=== PATIENT | male | born 1970 | race Asian ===

== ENCOUNTER 2018-12-08 05:10 | Day surgery (SDC) | payer OTHER ==
[~2018-12-08] VITALS: Ht 177.8 cm; Wt 88.1 kg
[2018-12-08 07:44] VITALS: Ht 177.8 cm; Wt 88.1 kg
== END 2018-12-08 05:11 | disposition left against medical advice (07) ==
LOC: UNDODISIN 05:10 → SUR 05:10 → PP2 05:10 → UNDOADMIN 05:10 → 2NE 05:10 → SUR 05:11 → EDSTATUS 08:17
PROVIDERS: ATTEND Family Medicine
DX: K37 Unspecified appendicitis (principal); Z53.8 Procedure and treatment not carried out for other reasons

== ENCOUNTER 2018-12-08 05:35 | Inpatient (IN) | payer OTHER ==
[2018-12-08] VITALS (18 sets, daily range): BP systolic 118–176; BP diastolic 81–113; PULSE 86–113; RESP 16–21; Ht 177.8 cm; Wt 89.6 kg
[~2018-12-08] VITALS: Ht 177.8 cm; Wt 89.6 kg
--- NOTE | 2018-12-08 06:08 | ERD ---
ER Documentation Chief Complaint Chief Complaint CAME FROM [facility]; STATES DX OF APPENDICITIS HPI 48-year-old male history of hypertension presents to the ED complaining of 1 day history of worsening, abdominal pain which localized to the right lower quadrant with nausea and vomiting but no diarrhea. Patient was seen yesterday in the ED at [facility], diagnosed with appendicitis and was pending transfer but signed out AGAINST MEDICAL ADVICE and came on his own. WBC count was 18.[address] of the abdomen and pelvis with intravenous contrast revealed a dilated appendix measuring 14 mm with surrounding edema and fat stranding but no drainable fluid collection. Rocephin and Flagyl were given. ROS All systems reviewed and are negative except as per history of present illness. Allergies Allergies: Coded Allergies: No Known Allergy (Unverified , 12/08/18) PMhx/Soc No medication allergies. Medical and Surgical Hx: pt denies Surgical Hx History of Surgery: No Anesthesia Reaction: No Hx Neurological Disorder: No Hx Respiratory Disorders: No Hx Cardiac Disorders: Yes (HTN) Hx Psychiatric Problems: No Hx Miscellaneous Medical Probl: No Hx Alcohol Use: No Hx Substance Use: No Hx Tobacco Use: No Smoking Status: Never smoker FmHx No family history relevant to presenting complaint Physical Exam Vitals Vital Signs Date Temp Pulse Resp B/P (MAP) Pulse Ox O2 O2 Flow FiO2 Time Delivery Rate 12/08/18 108 22 135/86 99 Room Air 06:30 (102) 12/08/18 99.5 115 14 131/100 96 Room Air 06:05 (110) 12/08/18 100.8 124 18 151/102 94 05:39 (118) Physical Exam Const: Alert, moderate distress. Head: Atraumatic Eyes: Normal Conjunctiva. Anicteric ENT: Normal External Ears, Nose and Mouth. Neck: Full range of motion. No meningismus. No lymphadenopathy or masses. Resp: Breath sounds are equal and clear to auscultation bilaterally Cardio: Tachycardic. Regular rate and rhythm, no murmurs Abd: Soft, moderate, right lower quadrant tenderness but no rebound or guarding. Skin: No petechiae or rashes Back: No midline or flank tenderness Ext: No cyanosis, or edema Neur: Awake and alert. No focal deficit Psych: Cooperative. Anxious but not depressed. Result Diagram: 12/08/1862912/08/18629 Results 24 hrs Laboratory Tests Test 12/08/18 06:30 White Blood Count 15.8 10^3/ul Red Blood Count 5.31 10^6/ul Hemoglobin 16.1 g/dl Hematocrit 48.5 % Mean Corpuscular Volume 91.3 fl Mean Corpuscular Hemoglobin 30.3 pg Mean Corpuscular Hemoglobin Concent 33.2 g/dl Red Cell Distribution Width 12.2 % Platelet Count 257 10^3/UL Mean Platelet Volume 10.2 fl Immature Granulocytes % 0.300 % Neutrophils % 89.4 % Segmented Neutrophils % (Manual) 87 % Band Neutrophils % (Manual) 1 % Lymphocytes % 6.8 % Lymphocytes % (Manual) 4 % Reactive Lymphocytes % (Manual) 1 % Monocytes % 3.4 % Monocytes % (Manual) 4 % Eosinophils % 0.0 % Basophils % 0.1 % Metamyelocytes % (manual) 1 % Myelocytes % (Manual) 2 % Nucleated Red Blood Cells % 0.0 /100WBC Immature Granulocytes # 0.050 10^3/ul Neutrophils # 14.1 10^3/ul Neutrophils # (Manual) 13.8 10^3/ul Band Neutrophils # 0.1 10^3/ul Lymphocytes (Manual) 0.6 10^3/ul Lymphocytes # 1.1 10^3/ul Reactive Lymphocytes # 0.1 10^3/ul Monocytes # 0.5 10^3/ul Monocytes # (Manual) 0.6 10^3/ul Eosinophils # 0.0 10^3/ul Basophils # 0.0 10^3/ul Metamyelocytes # 0.1 10^3/ul Myelocytes # 0.3 10^3/ul Nucleated Red Blood Cells # 0.0 10^3/ul Platelet Estimate NORMAL Anisocytosis 1+ Sodium Level 140 mmol/L Potassium Level 3.8 mmol/L Chloride Level 105 mmol/L Carbon Dioxide Level 25 mmol/L Anion Gap 10 Blood Urea Nitrogen 18 mg/dl Creatinine 0.98 mg/dl Est Glomerular Filtrat Rate mL/min > 60 mL/min Glucose Level 117 mg/dl Calcium Level 9.4 mg/dl Total Bilirubin 1.6 mg/dl Direct Bilirubin 0.00 mg/dl Indirect Bilirubin 1.6 mg/dl Aspartate Amino Transf (AST/SGOT) 21 IU/L Alanine Aminotransferase (ALT/SGPT) 30 IU/L Alkaline Phosphatase 66 IU/L Total Protein 7.5 g/dl Albumin 4.5 g/dl Globulin 3.00 g/dl Albumin/Globulin Ratio 1.50 Lipase 54 U/L Current Medications Medications Dose Sig/Sergio Start Time Status Last (Trade) Ordered Route PRN Stop Time Admin Dose Reason Admin Potassium 1,000 ml @ Q8H STAT 12/08/18 DC 12/08/18 Chloride/Dext 125 mls/hr IV 06:16 12/08/18 06:53 jann/ Sod Cl 14:15 Morphine 4 mg ONCE STAT 12/08/18 DC 12/08/18 Sulfate IV 06:16 12/08/18 06:43 (morphine) 06:21 Ondansetron 4 mg ONCE STAT 12/08/18 DC 12/08/18 HCl (Zofran IV 06:16 12/08/18 06:43 Inj) 06:21 Sodium 1,000 ml @ [id number] IV 12/08/18 Chloride 80 mls/hr 06:31 Procedures/MDM DOCUMENTS REVIEWED: ED nurse, [facility] ED EKG: Time: 06:31. Sinus tachycardia. Ventricular rate 108. Normal ND and QRS intervals. No acute ST segment elevation or depression. No axis deviation or ectopy. My Interpretation: Normal EKG IMAGING: CT scan of the abdomen and pelvis with intravenous contrast performed at [facility] revealed a dilated appendix measuring 14 mm with surrounding edema and fat stranding but no drainable fluid collection consistent with acute uncomplicated appendicitis. There is also hypodensity in the left lobe of the liver measuring 1.3 cm likely an hepatic cyst. MEDICAL DECISION MAKIN-year-old male history of hypertension presents to the ED complaining of 1 day history of worsening, abdominal pain which localized to the right lower quadrant with nausea and vomiting but no diarrhea. Medical records from [facility] were obtained and reviewed. CT scan revealed acute appendicitis without perforation. Patient was diagnosed with acute appendicitis, IV antibiotics: Rocephin/Flagyl given and was pending transfer but apparently signed out AGAINST MEDICAL ADVICE and came to [facility] on his own. Last p.o. intake was at approximately 01:00. Multiple criteria for systemic inflammatory response syndrome including fever, tachycardia and leukocytosis. Sepsis due to acute appendicitis. Time of recognition/triage time 05:39. Lactate is 1.4 mmol/L. No elevated lactate, end organ dysfunction, hypotension or criteria for severe sepsis or septic shock; hence "bundle therapy" is not indicated. Surgery consulted. Admit to [facility] for urgent surgical intervention, further evaluation and management. CALLS/CONSULTS: Time: 06:24, Dr. Zhou. Will consult PATIENT CARE TRANSITIONED: Time: 06:27, Dr. King. Counseled patient regarding diagnosis, diagnostic results and plan for admission. Departure Diagnosis: Primary Impression: Acute abdominal pain in right lower quadrant Additional Impressions: Acute appendicitis Acute appendicitis type: unspecified acute appendicitis type Qualified Codes: K35.80 - Unspecified acute appendicitis SIRS (systemic inflammatory response syndrome) Sepsis Sepsis type: sepsis due to unspecified organism Qualified Codes: A41.9 - Sepsis, unspecified organism Condition: Serious PARAMJIT MCCORMACK MD December 08, 2018 06:08
[2018-12-08] MEDS ORDERED: ONDANSETRON 4 MG INJ IV STA (06:16)
[2018-12-08] MEDS ORDERED: morphine 4 MG/ML VIAL IV STA (06:16)
[2018-12-08] MEDS ORDERED: D5W-0.45 NACL + KCL 20 MEQ 1,000 ML IV STA (06:16)
[2018-12-08] MEDS ORDERED: BISACODYL (EC) 5 MG TAB PO PRN (07:00)
[2018-12-08] MEDS ORDERED: DOCUSATE SODIUM 100 MG CAP PO PRN (07:00)
[2018-12-08] MEDS ORDERED: NACL 0.9% 3 ML SYG IV SCH (07:00)
[2018-12-08] MEDS: morphine 2 MG INJ IV PRN ×3 (08:51→23:19)
[2018-12-08] MEDS: PIPER-TAZO 3.375 GM IV (PMX) 100 ML IVPB SCH ×4 (09:14→21:19)
--- NOTE | 2018-12-08 14:38 | HP ---
Date/Time of Note Date/Time of Note DATE: 12/08/18 TIME: 14:31 Assessment/Plan VTE Prophylaxis Pharmacological prophylaxis: NA/contraindicated Pharm contraindication: low risk/ambulating Lines/Catheters IV [facility] Saline Lock Urinary Cath still in place: No Assessment/Plan Hospital Course SUBJECTIVE: OBJECTIVE: Vital signs-see below PHYSICAL EXAM: Constitutional: Adequately built,not in acute distress. HEENT: Head atraumatic and normocephalic. Eyes: Extraocular muscles intact. Ani cteric sclerae. Pupils equal bilaterally, reactive to light. NECK: Supple without lymph node. CHEST: Clear and good breath sounds equally. No wheezing. No rhonchi. HEART: S1, S2. Regular rate and rhythm. ABDOMEN: +RUQ tenderness. no rebound tenderness. Bowel sounds were present. EXTREMITIES: No cyanosis, clubbing or edema. NEUROLOGIC: Alert and oriented x3. No focal deficit. No sensory deficit. PSYCHOSOCIAL: No signs of depression. INTEGUMENTARY: No open wounds. ASSESSMENT AND PLAN: 48-year-old homeless male with no significant past medical history, admitted with acute appendicitis diagnosed from outside hospital. X 1. Acute appendicitis. -Surgical consult, likely requiring appendectomy. -IV Zosyn, n.p.o., IV fluids, PRN pain control. 2. Sepsis with acute appendicitis. -Continue appropriate antimicrobials with good anaerobic coverage. Follow-up postoperative findings. 3. Homelessness -new car make ready worker consult -Recommend getting urine drug toxicology as well. DVT prophylaxis: SCDs PUD prophylaxis: Not indicated Rest of the management depend on hospital course. Approximately 60 m spent on this history and physical. Patient was seen in collaboration with Dr. Resendiz. Result Diagram: 12/08/18 0630 12/08/18 0630 Results 24hrs Laboratory Tests Test 12/08/18 06:30 12/08/18 07:06 White Blood Count 15.8 H Red Blood Count 5.31 Hemoglobin 16.1 Hematocrit 48.5 Mean Corpuscular Volume 91.3 Mean Corpuscular Hemoglobin 30.3 Mean Corpuscular Hemoglobin Concent 33.2 Red Cell Distribution Width 12.2 Platelet Count 257 Mean Platelet Volume 10.2 Immature Granulocytes % 0.300 Neutrophils % 89.4 H Segmented Neutrophils % (Manual) 87 H Band Neutrophils % (Manual) 1 Lymphocytes % 6.8 L Lymphocytes % (Manual) 4 L Reactive Lymphocytes % (Manual) 1 H Monocytes % 3.4 Monocytes % (Manual) 4 Eosinophils % 0.0 Basophils % 0.1 Metamyelocytes % (manual) 1 H Myelocytes % (Manual) 2 H Nucleated Red Blood Cells % 0.0 Immature Granulocytes # 0.050 H Neutrophils # 14.1 H Neutrophils # (Manual) 13.8 H Band Neutrophils # 0.1 Lymphocytes (Manual) 0.6 L Lymphocytes # 1.1 Reactive Lymphocytes # 0.1 H Monocytes # 0.5 Monocytes # (Manual) 0.6 Eosinophils # 0.0 Basophils # 0.0 Metamyelocytes # 0.1 H Myelocytes # 0.3 H Nucleated Red Blood Cells # 0.0 Platelet Estimate NORMAL Anisocytosis 1+ Sodium Level 140 Potassium Level 3.8 Chloride Level 105 Carbon Dioxide Level 25 Anion Gap 10 Blood Urea Nitrogen 18 Creatinine 0.98 Est Glomerular Filtrat Rate mL/min > 60 Glucose Level 117 Calcium Level 9.4 Total Bilirubin 1.6 H Direct Bilirubin 0.00 Indirect Bilirubin 1.6 H Aspartate Amino Transf (AST/SGOT) 21 Alanine Aminotransferase (ALT/SGPT) 30 Alkaline Phosphatase 66 Total Protein 7.5 Albumin 4.5 Globulin 3.00 Albumin/Globulin Ratio 1.50 Lipase 54 POC Venous Lactate 1.4 HPI/ROS Admit Date/Time Admit Date/Time December 08, 2018 at 06:32 Hx of Present Illness This is a 48-year-old male who is also homeless, admitted at [facility] with acute appendicitis and was waiting for transfer to [facility] due to insurance capitation, patient left AGAINST MEDICAL ADVICE from there and came straight to [facility] emergency room. Patient has been having right-sided abdominal pain associated with fevers and mild nausea for 1 day duration. He denied diarrhea, vomiting, loss of appetite, upper or lower GI bleeds. Patient also denies chest pain, palpitation, dizziness, loss of consciousness, headache or other constitutional symptoms. On arrival to [facility] ER, patient had a temperature 100.8, heart rate 124 and blood pressure 151/102. Patient was given antimicrobials and a surgery consultation was called from the emergency room. ROS A 12 point review of system was assessed and is negative other than what is mentioned in the HPI. PMH/Family/Social Past Medical History See HPI Medications Current Medications Sodium Chloride 1,000 ml @ 80 mls/hr [id number] IV ; Start 12/08/18 at 06:31 IV Flush (NS 3 ml) 3 ml PER PROTOCOL IV ; Start 12/08/18 at 07:00 Ondansetron HCl (Zofran Inj) 4 mg Q6H PRN IV NAUSEA/VOMITING; Start 12/08/18 at 07:00 Acetaminophen (Tylenol Tab) 650 mg Q6H PRN PO .PAIN 1-3 OR TEMP; Start 12/08/18 at 07:00 Morphine Sulfate (morphine) 2 mg Q4H PRN IV .SEVERE PAIN 7-10 Last administered on 12/08/18at 08:51; Admin Dose 2 MG; Start 12/08/18 at 07:00 Docusate Sodium (Colace) 100 mg Q12H PRN PO .CONSTIPATION; Start 12/08/18 at 07:00 Bisacodyl (Dulcolax) 5 mg DAILY PRN PO .CONSTIPATION; Start 12/08/18 at 07:00 Piperacillin Sod/ Tazobactam Sod 100 ml @ 200 mls/hr Q6 IVPB Last administered on 12/08/18at 12:48; Admin Dose 200 MLS/HR; Start 12/08/18 at 07:30 Coded Allergies: No Known Allergy (Unverified , 12/08/18) Past Surgical History None Social History Denied alcohol, smoking or drug abuse history. Please note that patient is also homeless. Smoking Status: Never smoker Exam/Review of Systems Vital Signs Vitals Vital Signs Date Temp Pulse Resp B/P (MAP) Pulse Ox O2 O2 Flow FiO2 Time Delivery Rate 12/08/18 99.3 108 18 138/91 96 Room Air 08:00 (107) IRLANDA GUSTAFSON NP December 08, 2018 14:38
--- NOTE | 2018-12-08 15:10 | PREAC ---
Date/Time of Note Date/Time of Note DATE: 12/08/18 TIME: 15:08 Anesthesia Eval and Record Evaluation Time Pre-Procedure Interview DATE: 12/08/18 TIME: 15:08 Age 48 Sex male NPO: 8 hrs Preoperative diagnosis acute appendicitis Planned procedure Laparoscopic appendectomy Past Medical History Past Medical History: Includes Cardio: HTN (has not taken meds in a few days per pt) Surgery & Anesthesia Issues No known issue Meds Anticoagulation: No Beta Ernesto within 24 hr: No Reason Beta Ernesto not given: Pt. not on B-Ernesto Current Medications Sodium Chloride 1,000 ml @ 80 mls/hr [id number] IV ; Start 12/08/18 at 06:31 IV Flush (NS 3 ml) 3 ml PER PROTOCOL IV ; Start 12/08/18 at 07:00 Ondansetron HCl (Zofran Inj) 4 mg Q6H PRN IV NAUSEA/VOMITING; Start 12/08/18 at 07:00 Acetaminophen (Tylenol Tab) 650 mg Q6H PRN PO .PAIN 1-3 OR TEMP; Start 12/08/18 at 07:00 Morphine Sulfate (morphine) 2 mg Q4H PRN IV .SEVERE PAIN 7-10 Last administered on 12/08/18at 14:58; Admin Dose 2 MG; Start 12/08/18 at 07:00 Docusate Sodium (Colace) 100 mg Q12H PRN PO .CONSTIPATION; Start 12/08/18 at 07:00 Bisacodyl (Dulcolax) 5 mg DAILY PRN PO .CONSTIPATION; Start 12/08/18 at 07:00 Piperacillin Sod/ Tazobactam Sod 100 ml @ 200 mls/hr Q6 IVPB Last administered on 12/08/18at 12:48; Admin Dose 200 MLS/HR; Start 12/08/18 at 07:30 Meds reviewed: Yes Allergies Coded Allergies: No Known Allergy (Unverified , 12/08/18) Allergies Reviewed: Yes Labs/Studies Labs Reviewed: Reviewed by anesthesiologist Result Diagram: 12/08/18 0630 12/08/18 0630 Laboratory Tests 12/08/18 06:30 test: N/A Studies: ECG (st otherwise nml ) Pre-procedure Exam Last vitals Vital Signs Date Temp Pulse Resp B/P (MAP) Pulse Ox O2 O2 Flow FiO2 Time Delivery Rate 12/08/18 99.3 108 18 138/91 96 Room Air 08:00 (107) Airway: Adequate mouth opening, Adequate thyromental dist Mallampati: Mallampati II Teeth: Normal Lung: Normal Heart: Normal ASA Physical Status ASA physical status: 2 Emergency: E Planned Anesthetic General/MAC: ETT Nerve block: TAP (bilateral) Pre-operative Attestations Prior to commencing anesthesia and surgery, the patient was re-evaluated, there was verification of: *The patient's identity *The results of appropriate recent lab work and preoperative vital signs *The above evaluation not changing prior to induction *Anesthetic plan, risk benefits, alternative and complications discussed with patient/family; questions answered; patient/family understands, accepts and wishes to proceed. LINDSEY GLOVER December 08, 2018 15:10
[2018-12-08] MEDS ORDERED: BUPIVACAINE 0.5%/EPI (SDV) 30 ML INJ ONE (15:59)
[2018-12-08] MEDS ORDERED: ONDANSETRON 4 MG INJ IV PRN ×2 (16:30→20:00)
[2018-12-08] MEDS ORDERED: DIPHENHYDRAMINE 50 MG INJ IV PRN ×2 (16:30→20:00)
[2018-12-08] MEDS ORDERED: OXYCODONE/ACETAMINOPHEN (5/325) TAB PO PRN (16:30)
[2018-12-08] MEDS ORDERED: HYDROmorphONE 1 MG/5 ML IV SYRINGE IV PRN ×3 (16:30)
[2018-12-08] MEDS ORDERED: MEPERIDINE 25 MG INJ IV PRN (16:30)
[2018-12-08] MEDS ORDERED: LABETALOL HCL 20MG INJ IV PRN (16:30)
[2018-12-08] MEDS ORDERED: FENTAnyl 50 MCG/ML VIAL IV PRN (16:30)
[2018-12-08] MEDS ORDERED: PROCHLORPERAZINE 10 MG INJ IV PRN (16:30)
[2018-12-08] MEDS ORDERED: MIDAZOLAM 1 MG/ML 2 ML INJ ONE (16:50)
[2018-12-08] MEDS ORDERED: FENTAnyl 50 MCG/ML VIAL ONE ×2 (16:50→18:31)
[2018-12-08] MEDS ORDERED: ROPIVACAINE 0.5 % 30 ML VIAL ONE (16:51)
--- NOTE | 2018-12-08 17:05 | CONS ---
Assessment/Plan Assessment/Plan Assessment/Plan (Daily) Acute appendicitis for laparoscopic appendectomy. We discussed risks and benefits we discussed possible complications. We discussed possibility of open surgery as well. Patient understood and wishes to proceed. Consultation Date/Type/Reason Admit Date/Time December 08, 2018 at 06:32 Date of Consultation: December 08, 2018 Reason for Consultation Surgical Date/Time of Note DATE: 12/08/18 TIME: 17:01 Hx of Present Illness Diffuse abdominal pain started 2 days ago associated with nausea and vomiting. Patient went to the [facility] was diagnosed with appendicitis according to physical exam and CT scan. Because of the insurance requirement the patient was transferred to our hospital. Patient was admitted and started on antibiotics. Patient mentioned that pain is mostly right lower quadrant now. It is not getting better. Constitutional: no complaints, improved Eyes: no complaints ENT: no complaints Respiratory: no complaints Cardiovascular: other (Hypertension) Gastrointestinal: pain, nausea Genitourinary: no complaints Musculoskeletal: no complaints Skin: no complaints Neurologic: no complaints Endocrine: no complaints Lymphatic: no complaints Psychological: no complaints, nl mood/affect Immunologic: no complaints Past Medical History Medical History: no pertinent history Medications Current Medications Sodium Chloride 1,000 ml @ 80 mls/hr [id number] IV ; Start 12/08/18 at 06:31 IV Flush (NS 3 ml) 3 ml PER PROTOCOL IV ; Start 12/08/18 at 07:00 Ondansetron HCl (Zofran Inj) 4 mg Q6H PRN IV NAUSEA/VOMITING; Start 12/08/18 at 07:00 Acetaminophen (Tylenol Tab) 650 mg Q6H PRN PO .PAIN 1-3 OR TEMP; Start 12/08/18 at 07:00 Morphine Sulfate (morphine) 2 mg Q4H PRN IV .SEVERE PAIN 7-10 Last administered on 12/08/18at 14:58; Admin Dose 2 MG; Start 12/08/18 at 07:00 Docusate Sodium (Colace) 100 mg Q12H PRN PO .CONSTIPATION; Start 12/08/18 at 07:00 Bisacodyl (Dulcolax) 5 mg DAILY PRN PO .CONSTIPATION; Start 12/08/18 at 07:00 Piperacillin Sod/ Tazobactam Sod 100 ml @ 200 mls/hr Q6 IVPB Last administered on 12/08/18at 12:48; Admin Dose 200 MLS/HR; Start 12/08/18 at 07:30 Hydromorphone HCl (Dilaudid) 0.2 mg PACU PRN IV MILD PAIN 1-3; Start 12/08/18 at 16:30; Stop 12/08/18 at 21:00 Hydromorphone HCl (Dilaudid) 0.4 mg PACU PRN IV MOD PAIN 4-6; Start 12/08/18 at 16:30; Stop 12/08/18 at 21:00 Hydromorphone HCl (Dilaudid) 0.6 mg PACU PRN IV SEVERE PAIN 7-10; Start 12/08/18 at 16:30; Stop 12/08/18 at 21:00 Fentanyl (Sublimaze) 25 mcg PACU ORDER PRN IV MILD PAIN 1-3; Start 12/08/18 at 16:30; Stop 12/08/18 at 21:00 Oxycodone/ Acetaminophen (Percocet (5/ 325)) 1 tab PACU ORDER PRN PO .PAIN 1-5; Start 12/08/18 at 16:30; Stop 12/08/18 at 21:00 Ondansetron HCl (Zofran Inj) 4 mg PACU ORDER PRN IV NAUSEA/VOMITING; Start 12/08/18 at 16:30; Stop 12/08/18 at 21:00 Prochlorperazine (Compazine Inj) 5 mg PACU ORDER PRN IV NAUSEA/VOMITING; Start 12/08/18 at 16:30; Stop 12/08/18 at 21:00 Labetalol HCl (Labetalol) 5 mg PACU ORDER PRN IV HIGH BLOOD PRESSURE; Start 12/08/18 at 16:30; Stop 12/08/18 at 21:00 Hydralazine HCl (Apresoline) 5 mg PACU ORDER PRN IV HIGH BLOOD PRESSURE; Start 12/08/18 at 16:30; Stop 12/08/18 at 21:00 Meperidine HCl (Demerol) 25 mg PACU ORDER PRN IV .RIGORS; Start 12/08/18 at 16:30; Stop 12/08/18 at 21:00 Diphenhydramine HCl (Benadryl) 25 mg PACU ORDER PRN IV .PRURITUS; Start 12/08/18 at 16:30; Stop 12/08/18 at 21:00 Allergies: Coded Allergies: No Known Allergy (Unverified , 12/08/18) Past Surgical History Past Surgical Hx: no surgical history Family History Significant Family History: no pertinent family hx Social History Smoking Status: Never smoker Exam/Review of Systems Exam Vitals Vital Signs Date Temp Pulse Resp B/P (MAP) Pulse Ox O2 O2 Flow FiO2 Time Delivery Rate 12/08/18 99.5 113 18 118/87 94 Room Air 14:20 (97) Constitutional: alert, oriented, well developed Psych: no complaints, nl mood/affect Head: normocephalic, atraumatic Eyes: nl conjunctiva, EOMI, nl lids, nl sclera, PERRL ENMT: nl external ears & nose, nl lips & teeth, nl nasal mucosa & septum Neck: supple, non-tender Respiratory: clear to auscultation, normal air movement Cardiovascular: regular rate and rhythm, nl pulses Gastrointestinal: other (The abdomen is mildly distended diffusely tender mostly in the right lower quadrant, with positive rebound sign.) Musculoskeletal: nl extremities to inspection, nl gait and stance Extremities: normal pulses Neurological: ENTRY LEVEL PROGRAMMER II-XII intact, nl mental status, nl speech, nl strength Skin: nl turgor; No rash or lesions Lymph: nl lymph nodes Results Result Diagram: 12/08/18 0630 12/08/18 0630 Results 24hrs Laboratory Tests Test 12/08/18 06:30 12/08/18 07:06 White Blood Count 15.8 H Red Blood Count 5.31 Hemoglobin 16.1 Hematocrit 48.5 Mean Corpuscular Volume 91.3 Mean Corpuscular Hemoglobin 30.3 Mean Corpuscular Hemoglobin Concent 33.2 Red Cell Distribution Width 12.2 Platelet Count 257 Mean Platelet Volume 10.2 Immature Granulocytes % 0.300 Neutrophils % 89.4 H Segmented Neutrophils % (Manual) 87 H Band Neutrophils % (Manual) 1 Lymphocytes % 6.8 L Lymphocytes % (Manual) 4 L Reactive Lymphocytes % (Manual) 1 H Monocytes % 3.4 Monocytes % (Manual) 4 Eosinophils % 0.0 Basophils % 0.1 Metamyelocytes % (manual) 1 H Myelocytes % (Manual) 2 H Nucleated Red Blood Cells % 0.0 Immature Granulocytes # 0.050 H Neutrophils # 14.1 H Neutrophils # (Manual) 13.8 H Band Neutrophils # 0.1 Lymphocytes (Manual) 0.6 L Lymphocytes # 1.1 Reactive Lymphocytes # 0.1 H Monocytes # 0.5 Monocytes # (Manual) 0.6 Eosinophils # 0.0 Basophils # 0.0 Metamyelocytes # 0.1 H Myelocytes # 0.3 H Nucleated Red Blood Cells # 0.0 Platelet Estimate NORMAL Anisocytosis 1+ Sodium Level 140 Potassium Level 3.8 Chloride Level 105 Carbon Dioxide Level 25 Anion Gap 10 Blood Urea Nitrogen 18 Creatinine 0.98 Est Glomerular Filtrat Rate mL/min > 60 Glucose Level 117 Calcium Level 9.4 Total Bilirubin 1.6 H Direct Bilirubin 0.00 Indirect Bilirubin 1.6 H Aspartate Amino Transf (AST/SGOT) 21 Alanine Aminotransferase (ALT/SGPT) 30 Alkaline Phosphatase 66 Total Protein 7.5 Albumin 4.5 Globulin 3.00 Albumin/Globulin Ratio 1.50 Lipase 54 POC Venous Lactate 1.4 Medications Medication Current Medications Sodium Chloride 1,000 ml @ 80 mls/hr [id number] IV ; Start 12/08/18 at 06:31 IV Flush (NS 3 ml) 3 ml PER PROTOCOL IV ; Start 12/08/18 at 07:00 Ondansetron HCl (Zofran Inj) 4 mg Q6H PRN IV NAUSEA/VOMITING; Start 12/08/18 at 07:00 Acetaminophen (Tylenol Tab) 650 mg Q6H PRN PO .PAIN 1-3 OR TEMP; Start 12/08/18 at 07:00 Morphine Sulfate (morphine) 2 mg Q4H PRN IV .SEVERE PAIN 7-10 Last administered on 12/08/18at 14:58; Admin Dose 2 MG; Start 12/08/18 at 07:00 Docusate Sodium (Colace) 100 mg Q12H PRN PO .CONSTIPATION; Start 12/08/18 at 07:00 Bisacodyl (Dulcolax) 5 mg DAILY PRN PO .CONSTIPATION; Start 12/08/18 at 07:00 Piperacillin Sod/ Tazobactam Sod 100 ml @ 200 mls/hr Q6 IVPB Last administered on 12/08/18at 12:48; Admin Dose 200 MLS/HR; Start 12/08/18 at 07:30 Hydromorphone HCl (Dilaudid) 0.2 mg PACU PRN IV MILD PAIN 1-3; Start 12/08/18 at 16:30; Stop 12/08/18 at 21:00 Hydromorphone HCl (Dilaudid) 0.4 mg PACU PRN IV MOD PAIN 4-6; Start 12/08/18 at 16:30; Stop 12/08/18 at 21:00 Hydromorphone HCl (Dilaudid) 0.6 mg PACU PRN IV SEVERE PAIN 7-10; Start 12/08/18 at 16:30; Stop 12/08/18 at 21:00 Fentanyl (Sublimaze) 25 mcg PACU ORDER PRN IV MILD PAIN 1-3; Start 12/08/18 at 16:30; Stop 12/08/18 at 21:00 Oxycodone/ Acetaminophen (Percocet (5/ 325)) 1 tab PACU ORDER PRN PO .PAIN 1-5; Start 12/08/18 at 16:30; Stop 12/08/18 at 21:00 Ondansetron HCl (Zofran Inj) 4 mg PACU ORDER PRN IV NAUSEA/VOMITING; Start 12/08/18 at 16:30; Stop 12/08/18 at 21:00 Prochlorperazine (Compazine Inj) 5 mg PACU ORDER PRN IV NAUSEA/VOMITING; Start 12/08/18 at 16:30; Stop 12/08/18 at 21:00 Labetalol HCl (Labetalol) 5 mg PACU ORDER PRN IV HIGH BLOOD PRESSURE; Start 12/08/18 at 16:30; Stop 12/08/18 at 21:00 Hydralazine HCl (Apresoline) 5 mg PACU ORDER PRN IV HIGH BLOOD PRESSURE; Start 12/08/18 at 16:30; Stop 12/08/18 at 21:00 Meperidine HCl (Demerol) 25 mg PACU ORDER PRN IV .RIGORS; Start 12/08/18 at 16:30; Stop 12/08/18 at 21:00 Diphenhydramine HCl (Benadryl) 25 mg PACU ORDER PRN IV .PRURITUS; Start 12/08/18 at 16:30; Stop 12/08/18 at 21:00 LINUS DIXON MD December 08, 2018 17:05
[2018-12-08] MEDS ORDERED: LIDOCAINE 2% (SDV) 5 ML INJ ONE (17:19)
[2018-12-08] MEDS ORDERED: PROPOFOL 20 ML ONE (17:19)
[2018-12-08] MEDS ORDERED: ROCURONIUM 50 MG INJ ONE (17:19)
[2018-12-08] MEDS ORDERED: SUCCINYLCHOLINE CHLORIDE 100 MG/5 ML SYG IV ONE (17:19)
[2018-12-08] MEDS ORDERED: PHENYLephrine (100 MCG/ML) 10ML SYG ONE (17:48)
[2018-12-08] MEDS ORDERED: FAMOTIDINE 20 MG INJ ONE (17:56)
[2018-12-08] MEDS ORDERED: DEXAMETHASONE 4 MG/ML 5 ML INJ ONE (17:56)
[2018-12-08] MEDS ORDERED: ONDANSETRON 4 MG INJ ONE (17:56)
[2018-12-08] MEDS ORDERED: GLYCOPYRROLATE 0.4 MG INJ ONE (18:23)
[2018-12-08] MEDS ORDERED: NEOSTIGMINE 3 MG/3 ML SYRINGE ONE (18:23)
--- NOTE | 2018-12-08 18:36 | OPR ---
Date/Time of Note Date/Time of Note DATE: 12/08/18 TIME: 18:30 Operative Report Procedure Date: December 08, 2018 Preoperative Diagnosis Acute appendicitis Postoperative Diagnosis Acute gangrenous perforated appendicitis Operation/Procedure Performed Laparoscopic appendectomy Surgeon see signature line Tool Coordinator None Anesthesia Type: general Anesthesiologist: RIKA ZAFAR MD Estimated Blood Loss: 0 - 10 ml's Transfusion none Specimen Appendix Grafts/Implants none Complications none Pt Condition Post Procedure: stable Disposition: PACU Indications 48 yo old male with acute appendicitis confirmed by CT scan Procedure Description Patient was brought to the operating room position supine. A timeout was performed. General endotracheal anesthesia was induced. The abdomen was prepped and draped in usual sterile fashion. Zosyn was given as antibiotics prophylaxis. The Veress needle was placed in the left subcostal position and the abdomen was insufflated with CO2 up to 15 mmHg. 5 mm trocar was placed in the periumbilical position and 5 mm 30 degree scope was used. Additional 5 mm trocar was placed in the right subcostal position and 12 mm blunt trocar in the suprapubic pubic position. Diffuse peritonitis was found. A lot of fibrin and purulent material was found in the right lower quadrant. Using suction and blunt dissection the appendix was dissected of the omentum. The pus was sucked out. I was able to find the base of the appendix which was gangrenous with small perforation. I created the window in the mesentery and using 45 mm stapler with white load I divided mesentery into fires. After that that the appendix was divided next to the cecum using 45 mm stapler with blue load. Because of the stump of the appendix looks gangrenosa I decided to imbricate the staple line. The imbrication was performed with a running 3-0V lock suture. After that the abdomen was irrigated with copious amount of normal saline. All the fluid was carefully sucked out with a special attention to the Donta space. After that hemostasis was confirmed specimen was re- moved through the 12 mm trocar site. Abdomen was desufflated. The trocars were removed. The 12 mm trocar was closed in 2 layers using 0 Vicryl to the fascia and 4-0 Monocryl to the skin, and the 5 mm trochars were closed just using Monocryl to the skin. Patient tolerated procedure well was extubated transferred to recovery room. Instrument and sponge counts were correct x2 LINUS DIXON MD December 08, 2018 18:36
--- NOTE | 2018-12-08 18:56 | PAC ---
Date/Time of Note Date/Time of Note DATE: 12/08/18 TIME: 18:55 Post-Anesthesia Notes Post-Anesthesia Note Last documented vital signs Vital Signs Date Temp Pulse Resp B/P (MAP) Pulse Ox O2 O2 Flow FiO2 Time Delivery Rate 12/08/18 98.5 18:52 12/08/18 113 18 118/87 94 Room Air 14:20 (97) Activity: WNL Respiratory function: WNL Cardiovascular function: WNL Mental status: Baseline Pain reasonably controlled: Yes Hydration appropriate: Yes Nausea/Vomiting absent: Yes Comments BP: 138/100 HR: 99 RR: 15 T: 98.5 SaO2: 98% RIKA ZAFAR MD December 08, 2018 18:56
[2018-12-08] MEDS: SOD CHLORIDE 0.9% 1,000 ML IV SCH ×2 (19:01→21:00)
[2018-12-08] MEDS: hydrALAzine 20 MG INJ IV PRN ×2 (19:33→19:50)
[2018-12-08] MEDS ORDERED: KETOROLAC 30 MG INJ IV PRN (20:00)
[2018-12-08] MEDS ORDERED: ACETAMINOPHEN 325 MG TAB PO PRN (20:00)
[2018-12-08] MEDS ORDERED: HYDROCODONE/APAP (5/325) TAB PO PRN (20:00)
[2018-12-08] MEDS ORDERED: HYDROmorphONE 0.5 MG/0.5 ML SYG IV PRN (20:00)
[2018-12-08] MEDS ORDERED: IBUPROFEN 600 MG TAB PO PRN (20:00)
[2018-12-08] MEDS: ONDANSETRON 4 MG INJ IV PRN (20:10)
[2018-12-08] MEDS: D5W-0.45 NACL + KCL 20 MEQ 1,000 ML IV SCH (23:17)
[2018-12-09] MEDS ORDERED: PIPER-TAZO 3.375 GM IV (PMX) 100 ML IVPB SCH
[2018-12-09 02:40] VITALS: BP 122/86; PULSE 94; RESP 18
[2018-12-09] MEDS: ONDANSETRON 4 MG INJ IV PRN ×3 (03:35→20:50)
[2018-12-09] MEDS: D5W-0.45 NACL + KCL 20 MEQ 1,000 ML IV SCH (05:42)
[2018-12-09] MEDS: PIPER-TAZO 3.375 GM IV (PMX) 100 ML IVPB SCH ×5 (06:04→23:43)
[2018-12-09 08:00] VITALS: BP 119/73; PULSE 90; RESP 18
--- NOTE | 2018-12-09 10:31 | PN ---
Date/Time of Note Date/Time of Note DATE: 12/09/18 TIME: 10:28 Assessment/Plan VTE Prophylaxis Risk score (from Ns)>0 risk: 2 SCD applied (from [facility]): Yes Pharmacological prophylaxis: NA/contraindicated Pharm contraindication: low risk/ambulating Lines/Catheters IV C[facility]ter Type (from [facility]): Peripheral IV Urinary Cath still in place: No Assessment/Plan Hospital Course SUBJECTIVE: Postop day #1. No acute distress.Tolerates diet. No fevers. OBJECTIVE: Vital signs-see below PHYSICAL EXAM: Constitutional: Adequately built,not in acute distress. HEENT: Head atraumatic and normocephalic. Eyes: Extraocular muscles intact. Anicteric sclerae. Pupils equal bilaterally, reactive to light. NECK: Supple without lymph node. CHEST: Clear and good breath sounds equally. No wheezing. No rhonchi. HEART: S1, S2. Regular rate and rhythm. ABDOMEN: Abdominal laparoscopic incision sites intact. No tenderness. no rebound tenderness. Bowel sounds were present. EXTREMITIES: No cyanosis, clubbing or edema. NEUROLOGIC: Alert and oriented x3. No focal deficit. No sensory deficit. PSYCHOSOCIAL: No signs of depression. INTEGUMENTARY: No open wounds. ASSESSMENT AND PLAN: 48-year-old homeless male with no significant past medical history, admitted with acute appendicitis diagnosed from outside hospital. X 1. Acute perforated appendicitis. -Status post laparoscopic appendectomy 12/08/2018 -Continue IV antimicrobials. Follow-up pathology -Diet as tolerated -Encourage ambulation and incentive spirometry. 2. Sepsis with acute perforated appendicitis. -Again, we will continue patient on IV antimicrobial. Leukocytosis still persist. Fevers resolved 3. 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 Continue IV anti-microbials. Follow- up surgical recommendations Patient was seen in collaboration with Dr. Resendiz. Result Diagram: 12/09/18 0515 12/09/18 0515 Results 24hrs Laboratory Tests Test 12/08/18 22:50 12/09/18 05:15 Urine Color YELLOW Urine Clarity CLEAR Urine pH 7.0 Urine Specific [place] 1.019 Urine Ketones 2+ H Urine Nitrite NEGATIVE Urine Bilirubin NEGATIVE Urine Urobilinogen NEGATIVE Urine Leukocyte Esterase NEGATIVE Urine Hemoglobin NEGATIVE Urine Glucose NEGATIVE Urine Total Protein NEGATIVE Urine Opiates Screen Positive Urine Barbiturates Negative Urine Amphetamines Screen Negative Urine Benzodiazepines Screen Positive Urine Cocaine Screen Negative Urine Cannabinoids Negative White Blood Count 16.6 H Red Blood Count 4.20 #L Hemoglobin 12.7 #L Hematocrit 39.0 L Mean Corpuscular Volume 92.9 Mean Corpuscular Hemoglobin 30.2 Mean Corpuscular Hemoglobin Concent 32.6 Red Cell Distribution Width 12.7 Platelet Count 210 Mean Platelet Volume 10.1 Immature Granulocytes % 0.500 H Neutrophils % Segmented Neutrophils % (Manual) 72 Band Neutrophils % (Manual) 18 H Lymphocytes % Lymphocytes % (Manual) 7 L Monocytes % Monocytes % (Manual) 3 Eosinophils % Basophils % Nucleated Red Blood Cells % 0.0 Immature Granulocytes # 0.090 H Neutrophils # Neutrophils # (Manual) 12.4 H Band Neutrophils # 2.9 H Lymphocytes (Manual) 1.1 Lymphocytes # Monocytes # Monocytes # (Manual) 0.4 Eosinophils # Basophils # Nucleated Red Blood Cells # Platelet Estimate NORMAL Polychromasia 2+ Poikilocytosis 1+ Anisocytosis 1+ Microcytosis 1+ Sodium Level 138 Potassium Level 4.0 Chloride Level 109 Carbon Dioxide Level 22 Anion Gap 7 Blood Urea Nitrogen 12 Creatinine 0.92 Est Glomerular Filtrat Rate mL/min > 60 Glucose Level 167 Calcium Level 8.4 Exam/Review of Systems Exam Vitals Vital Signs Date Temp Pulse Resp B/P (MAP) Pulse Ox O2 O2 Flow FiO2 Time Delivery Rate 12/09/18 98.3 90 18 119/73 94 Room Air 08:00 (88) 12/08/18 3.0 19:53 Intake and Output 12/08/18 12/08/18 12/09/18 1515:00 23:00 07:00 IntakeIntake Total 200 ml 2500 ml 1680 ml OutputOutput Total 10 ml 1125 ml BalanceBalance 200 ml 2490 ml 555 ml Results Results 24hrs Laboratory Tests Test 12/08/18 22:50 12/09/18 05:15 Urine Color YELLOW Urine Clarity CLEAR Urine pH 7.0 Urine Specific [place] 1.019 Urine Ketones 2+ H Urine Nitrite NEGATIVE Urine Bilirubin NEGATIVE Urine Urobilinogen NEGATIVE Urine Leukocyte Esterase NEGATIVE Urine Hemoglobin NEGATIVE Urine Glucose NEGATIVE Urine Total Protein NEGATIVE Urine Opiates Screen Positive Urine Barbiturates Negative Urine Amphetamines Screen Negative Urine Benzodiazepines Screen Positive Urine Cocaine Screen Negative Urine Cannabinoids Negative White Blood Count 16.6 H Red Blood Count 4.20 #L Hemoglobin 12.7 #L Hematocrit 39.0 L Mean Corpuscular Volume 92.9 Mean Corpuscular Hemoglobin 30.2 Mean Corpuscular Hemoglobin Concent 32.6 Red Cell Distribution Width 12.7 Platelet Count 210 Mean Platelet Volume 10.1 Immature Granulocytes % 0.500 H Neutrophils % Segmented Neutrophils % (Manual) 72 Band Neutrophils % (Manual) 18 H Lymphocytes % Lymphocytes % (Manual) 7 L Monocytes % Monocytes % (Manual) 3 Eosinophils % Basophils % Nucleated Red Blood Cells % 0.0 Immature Granulocytes # 0.090 H Neutrophils # Neutrophils # (Manual) 12.4 H Band Neutrophils # 2.9 H Lymphocytes (Manual) 1.1 Lymphocytes # Monocytes # Monocytes # (Manual) 0.4 Eosinophils # Basophils # Nucleated Red Blood Cells # Platelet Estimate NORMAL Polychromasia 2+ Poikilocytosis 1+ Anisocytosis 1+ Microcytosis 1+ Sodium Level 138 Potassium Level 4.0 Chloride Level 109 Carbon Dioxide Level 22 Anion Gap 7 Blood Urea Nitrogen 12 Creatinine 0.92 Est Glomerular Filtrat Rate mL/min > 60 Glucose Level 167 Calcium Level 8.4 Medications Medication Current Medications IV Flush (NS 3 ml) 3 ml PER PROTOCOL IV ; Start 12/08/18 at 07:00 Ondansetron HCl (Zofran Inj) 4 mg Q6H PRN IV NAUSEA/VOMITING Last administered on 12/09/18at 03:35; Admin Dose 4 MG; Start 12/08/18 at 07:00 Acetaminophen (Tylenol Tab) 650 mg Q6H PRN PO .PAIN 1-3 OR TEMP; Start 12/08/18 at 07:00 Morphine Sulfate (morphine) 2 mg Q4H PRN IV .SEVERE PAIN 7-10 Last administered on 12/08/18at 23:19; Admin Dose 2 MG; Start 12/08/18 at 07:00 Docusate Sodium (Colace) 100 mg Q12H PRN PO .CONSTIPATION; Start 12/08/18 at 07:00 Bisacodyl (Dulcolax) 5 mg DAILY PRN PO .CONSTIPATION; Start 12/08/18 at 07:00 Piperacillin Sod/ Tazobactam Sod 100 ml @ 200 mls/hr Q6 IVPB Last administered on 12/09/18at 06:04; Admin Dose 200 MLS/HR; Start 12/08/18 at 07:30 Ibuprofen (Motrin) 600 mg Q6H PRN PO PAIN LEVEL 1-3 Last administered on 12/09/18at 06:13; Admin Dose 600 MG; Start 12/08/18 at 20:00 Ketorolac Tromethamine (Toradol) 30 mg Q6H PRN IV PAIN; Start 12/08/18 at 20:00; Stop 12/11/18 at 19:59 Hydromorphone HCl (Dilaudid) 0.5 mg Q4H PRN IV PAIN LEVEL 8-10; Start 12/08/18 at 20:00 Acetaminophen/ Hydrocodone Bitart (Rhodell (5/325)) 1 tab Q6H PRN PO PAIN LEVEL 4-7 Last administered on 12/09/18at 03:35; Admin Dose 1 TAB; Start 12/08/18 at 20:00 Diphenhydramine HCl (Benadryl) 25 mg Q6H PRN IV PRURITUS; Start 12/08/18 at 20:00 IRLANDA GUSTAFSON NP December 09, 2018 10:31
--- NOTE | 2018-12-09 13:12 | PN ---
Date/Time of Note Date/Time of Note DATE: 12/09/18 TIME: 13:11 Assessment/Plan Lines/Catheters IV Catheter Type (from Nrsg): Peripheral IV Treviño in Place (from Nrsg): No Subjective 24 Hr Interval Summary Doing well after laparoscopic appendectomy for perforated gangrenous appendicitis. Pain is controlled tolerates diet, ambulating, vital stable, no fever. Discussed with the admitting general practitioner, will keep 1 more day for IV antibiotics given the severe inflammation during the surgery. On physical exam wounds clean abdomen is soft. Exam/Review of Systems Vital Signs Vitals Vital Signs Date Temp Pulse Resp B/P (MAP) Pulse Ox O2 O2 Flow FiO2 Time Delivery Rate 12/09/18 98.3 90 18 119/73 94 Room Air 08:00 (88) 12/08/18 3.0 19:53 Intake and Output 12/08/18 12/08/18 12/09/18 1515:00 23:00 07:00 IntakeIntake Total 200 ml 2500 ml 1680 ml OutputOutput Total 10 ml 1125 ml BalanceBalance 200 ml 2490 ml 555 ml Results Result Diagram: 12/09/18 0515 12/09/18 0515 LINUS DIXON MD December 09, 2018 13:12
[2018-12-09 14:00] VITALS: BP 101/59; PULSE 86; RESP 18
[2018-12-09 20:00] VITALS: BP 123/68; PULSE 95; RESP 18
[2018-12-09] MEDS: ACETAMINOPHEN 325 MG TAB PO PRN (20:51)
[2018-12-09] MEDS ORDERED: ZOLPIDEM 5 MG TAB PO PRN (23:30)
[2018-12-09] MEDS: morphine 2 MG INJ IV PRN (23:43)
[2018-12-10 02:00] VITALS: BP 135/61; PULSE 76; RESP 18
[2018-12-10] MEDS: PIPER-TAZO 3.375 GM IV (PMX) 100 ML IVPB SCH ×3 (05:56→11:49)
[2018-12-10] MEDS: ONDANSETRON 4 MG INJ IV PRN (05:58)
[2018-12-10] MEDS: ACETAMINOPHEN 325 MG TAB PO PRN (06:36)
[2018-12-10 08:00] VITALS: BP 170/103; PULSE 80; RESP 18
--- NOTE | 2018-12-10 10:36 | PDOCDIS ---
Discharge Instructions DIAGNOSIS Discharge Diagnosis Acute appendicitis; hypertension; dysthymia CONDITION [id number] Patient Condition: [id number] Good HOME CARE INSTRUCTIONS: [id number] Diet Instructions: [id number] Regular ACTIVITY: [id number] Activity Restrictions: [id number] Slowly Increase Activity FOLLOW UP/APPOINTMENTS Follow-up Plan Office of Dr. Zhou in 1 week; primary care physician in 3 weeks DINA MUNOZ MD December 10, 2018 10:36
--- NOTE | 2018-12-10 10:36 | DS ---
Date/Time of Note Date/Time of Note DATE: 12/10/18 TIME: 10:31 Discharge Summary Admission/Discharge Info Admit Date/Time December 08, 2018 at 06:32 Discharge Date/Time December 10, 2018 Discharge Diagnosis Acute appendicitis; hypertension; dysthymia Patient Condition: Fair Consults General surgery-Dr. Zhou Procedures Operative Report Procedure Date: December 08, 2018 Preoperative Diagnosis Acute appendicitis Postoperative Diagnosis Acute gangrenous perforated appendicitis Operation/Procedure Performed Laparoscopic appendectomy Hx of Present Illness Hx of Present Illness This is a 48-year-old male who is also homeless, admitted at [facility] with acute appendicitis and was waiting for transfer to [facility] due to insurance capitation, patient left AGAINST MEDICAL ADVICE from there and came straight to [facility] emergency room. Patient has been having right-sided abdominal pain associated with fevers and mild nausea for 1 day duration. He denied diarrhea, vomiting, loss of appetite, upper or lower GI bleeds. Patient also denies chest pain, palpitation, dizziness, loss of co nsciousness, headache or other constitutional symptoms. On arrival to [facility] ER, patient had a temperature 100.8, heart rate 124 and blood pressure 151/102. Patient was given antimicrobials and a surgery consultation was called from the emergency room. Hx of Present Illness Diffuse abdominal pain started 2 days ago associated with nausea and vomiting. Patient went to the [facility] was diagnosed with appendicitis according to physical exam and CT scan. Because of the insurance requirement the patient was transferred to our hospital. Patient was admitted and started on antibiotics. Patient mentioned that pain is mostly right lower quadrant now. It is not getting better. HPI 48-year-old male history of hypertension presents to the ED complaining of 1 day history of worsening, abdominal pain which localized to the right lower quadrant with nausea and vomiting but no diarrhea. Patient was seen yesterday in the ED at [facility], diagnosed with appendicitis and was pending transfer but signed out AGAINST MEDICAL ADVICE and came on his own. WBC count was 18.[address] of the abdomen and pelvis with intravenous contrast revealed a dilated appendix measuring 14 mm with surrounding edema and fat stranding but no drainable fluid collection. Rocephin and Flagyl were given. Hospital Course 48-year-old gentleman came in with acute appendicitis as above. He underwent laparoscopic appendectomy without complications fortunately. He was kept in the hospital an extra day for observation to the level of inflammation he had at surgery. He is now much improved and is requesting discharge. At this time he will be discharged home will follow up with the general surgeon in his office within a week. Please note he is out of his blood pressure medications, using valsartan 160 mg once a day I will make sure he has a prescription Follow-up Plan Office of Dr. Zhou in 1 week; primary care physician in 3 weeks Primary Care Provider Care Physician No Primary Time spent on discharge: > 30 minutes Pending Labs Laboratory Tests Test 12/10/18 05:13 White Blood Count 11.9 10^3/ul (4.8-10.8) Red Blood Count 4.05 10^6/ul (4.70-6.10) Hemoglobin 12.4 g/dl (14.0-18.0) Hematocrit 38.2 % (42.0-52.0) Mean Corpuscular Volume 94.3 fl (82.0-101.0) Mean Corpuscular Hemoglobin 30.6 pg (29.0-33.0) Mean Corpuscular Hemoglobin Concent 32.5 g/dl (32.0-37.0) Red Cell Distribution Width 12.3 % (11.5-14.5) Platelet Count 217 10^3/UL (140-415) Mean Platelet Volume 10.6 fl (7.4-10.4) Immature Granulocytes % 0.500 % (0.001-0.429) Neutrophils % 78.1 % (39.0-77.0) Lymphocytes % 15.3 % (15.0-51.0) Monocytes % 5.2 % (0.0-11.0) Eosinophils % 0.6 % (0.0-7.0) Basophils % 0.3 % (0.0-2.0) Nucleated Red Blood Cells % 0.0 /100WBC (0.0-0.0) Immature Granulocytes # 0.060 10^3/ul (0.0-0.031) Neutrophils # 9.3 10^3/ul (1.6-7.5) Lymphocytes # 1.8 10^3/ul (0.8-2.9) Monocytes # 0.6 10^3/ul (0.3-0.9) Eosinophils # 0.1 10^3/ul (0.0-0.5) Basophils # 0.0 10^3/ul (0.0-0.1) Nucleated Red Blood Cells # 0.0 10^3/ul (0.0-0.0) Sodium Level 142 mmol/L (135-144) Potassium Level 4.0 mmol/L (3.5-5.1) Chloride Level 110 mmol/L (97-110) Carbon Dioxide Level 26 mmol/L (21-31) Anion Gap 6 (5-13) Blood Urea Nitrogen 16 mg/dl (7-20) Creatinine 1.01 mg/dl (0.61-1.24) Est Glomerular Filtrat Rate mL/min > 60 mL/min (>60) Glucose Level 100 mg/dl (70-220) Calcium Level 8.2 mg/dl (8.4-10.2) Copies To: CC: LINUS ZHOU MD ; DINA MUNOZ MD December 10, 2018 10:36
[2018-12-10] MEDS ORDERED: HYDR-3601 PO (10:39)
[2018-12-10] MEDS ORDERED: AMOX1TAB10 PO (10:39)
[2018-12-10] MEDS ORDERED: VALS160T20 PO (10:39)
[2018-12-10] MEDS ORDERED: LOSARTAN 50 MG TAB PO ONE (11:00)
== END 2018-12-10 13:10 | disposition home or self-care (01) | DRG 853 ==
LOC: E/R 05:35 → PP2 06:32
PROVIDERS: ADMIT Family Medicine; ATTEND Family Medicine
PROC: 0DTJ4ZZ Resection of Appendix, Percutaneous Endoscopic Approach (ICD-10-PCS; principal; 2018-12-08 17:00)
DX: A41.9 Sepsis, unspecified organism (principal); K35.32 Acute appendicitis with perforation, localized peritonitis, and gangrene, without abscess; I10 Essential (primary) hypertension; R11.2 Nausea with vomiting, unspecified; F34.1 Dysthymic disorder; Z59.0 Homelessness; Z87.891 Personal history of nicotine dependence
CPT/HCPCS: 36415; 71045; 80048; 80053; 80307; 81003; 83605; 83690; 85025; 88304; 93005; J0360; J1100; J2250; J2270; J2370; J2405; J2543; J2710; J2795; J3010; J3480; J7030